=== PATIENT | female | born 1970 | race Caucasian/White ===

== ENCOUNTER 2019-08-26 09:53 | Outpatient (CLI) | payer MEDICAID ==
--- NOTE | 2019-08-26 16:12 | RAD ---
THORACOLUMBAR SPINE: 08/26/19 AP and lateral views were provided that mainly showed the thoracic spine. No fracture, disc space scarlett rowing or area of bony destruction was seen. The bones appear normal. IMPRESSION: No acute finding. POS: HOME
== END 2019-08-26 09:54 | disposition home or self-care (01) ==
LOC: BURRAD 09:53
PROVIDERS: ATTEND Nurse Practitioner Family
DX: M54.16 Radiculopathy, lumbar region (principal)
CPT/HCPCS: 72080